=== PATIENT | female | born 1995 ===

== ENCOUNTER 2023-11-22 15:47 | Outpatient (CLI) | payer MEDICAID, SELFPAY ==
--- NOTE | 2023-11-22 16:05 | XR_ITS ---
WS: [id number] Examination: XR foot RT min 3V* [id number] Reason for Exam: ACUTE PAIN OF RIGHT FOOT Date: 11/22/2023 Comparison: None. Findings: The bone density is maintained. There is no displaced fracture or dislocation No significant soft tissue swelling is identified. XR/XR foot RT min 3V* [id number] Impression: No acute bony abnormality is identified.
== END 2023-11-22 15:48 | disposition home or self-care (01) ==
DX: M79.671 Pain in right foot (principal)
CPT/HCPCS: 73630